=== PATIENT | female | born 1960 | race Caucasian/White ===

== ENCOUNTER 2024-09-12 19:42 | Emergency (ER) | payer BC, SELFPAY ==
[2024-09-12 19:49] VITALS: BP 121/81
[2024-09-12 20:30] LABS: ALT (SGPT) 29 U/L (0-35); AST (SGOT) 24 U/L (14-36); Albumin 4.3 g/dl (3.5-5.0); Alkaline Phosphatase 96 U/L (38-126); Blood Urea Nitrogen 17 mg/dl (7-17); Calcium 9.4 mg/dl (8.4-10.2); Carbon Dioxide 25 mmol/L (22-30); Chloride 106 mmol/L (98-107); Glucose 125 mg/dl (70-99); Sodium 142 mmol/L (135-145); Total Bilirubin 0.2 mg/dl (0.2-1.3); Total Protein 7.1 g/dl (6.3-8.2); eGFR > 60.00
[2024-09-12 20:39] LABS: Troponin I < 0.012 ng/ml
[2024-09-12 21:14] VITALS: BP 109/66
--- NOTE | 2024-09-12 21:40 | ED.GENMED ---
History of Present Illness
General
Chief Complaint: Heart Rate Problem
Source: patient
Exam Limitations: none
Time Seen by Provider: 09/12/24 21:39
Nursing documentation reviewed up to this point in time: agreed with
History of Present Illness
History of Present Illness:
64-year-old female with history of IBS, GERD, endometriosis, hypothyroid, cholecystectomy, hernia repair, 2 C-sections, hysterectomy presents for palpitations. She states for the past 3 weeks she has felt 'fluttering, palpitations that come and go
real quick,' yesterday they were more frequent and today they happen 'a lot.' She denies chest pain or shortness of breath but just tonight in her room she states she felt winded walking from the bathroom to the bed.
She states she did not want to come but her at bedside made her come as they are leaving for [place] in 3 days.
Asymptomatic at this time.
Past History
Past History
ED Past Medical History: Other (hypothyroid)
ED Past Surgical History: Cholecystectomy and Gynecological
Social History
Tobacco: Vaping (Former smoker)
Alcohol: Occasional
Living: with family
Employment: Not employed
Review of Systems
Review of Systems
Allergies reviewed?: Yes
All Other Systems: ROS reviewed and negative except as documented in HPI and ROS
Constitutional: Reports no symptoms
EENT: Reports no symptoms
Respiratory: Reports no symptoms
Cardiac: Reports palpitations; Denies chest pain or diaphoresis
ABD/GI: Denies abdominal pain, nausea, vomiting or diarrhea
: Denies dysuria, frequency or difficulty voiding
Musculoskeletal: Reports no symptoms
Skin: Reports no symptoms
Neurological: Reports no symptoms
Phy Exam
Physical Exam
Physical Exam:
GENERAL: No acute distress. A&Ox3.
CONSTITUTIONAL: Afebrile.
EYES: Clear, conjunctivae normal
ENMT: moist mucus membranes, Pharynx nl
RESPIRATORY: Regular respirations, nonlabored, lungs clear.
CARDIOVASCULAR: Regular rate and rhythm, no murmurs, no rubs.
GI: Soft, nontender, normal BS
MUSCULOSKELETAL: Moves with ease. Well perfused.
SKIN: Warm, dry, pink
PSYCH: Normal mood and affect. Well kept, interactive and appropriate
NEUROLOGIC: Awake, alert and oriented. No focal neurological deficits
Course
Orders/Labs/Results
Orders:
Orders
09/12/24 19:43
Electrocardiogram (*1) Urgent
Reason for Study: Atrial Fibrillation
EKG- Treatment ONCE
09/12/24 20:05
Comprehensive Metabolic Panel Urgent
Troponin I Urgent
09/12/24 21:53
CR Chest - 2 Views Urgent
Comment:
Reason For Exam: palpitations
09/12/24 22:25
Complete Blood Count/With Diff Urgent
Abnormal Lab Results
09/12/24 09/12/24
20:05 22:25
Absolute Monos (auto) 0.7 H 10^3/uL
(0.1-0.6)
Monocytes % 9.4 H %
(1.7-9.3)
Glucose 125 H mg/dl
(70-99)
09/12/24 22:25
09/12/24 20:05
Vital Signs
Initial and Last Documented VS:
Initial Vital Signs
Temp Pulse Resp BP Pulse Ox
98.1 F 90 18 121/81 97
09/12/24 19:49 09/12/24 19:49 09/12/24 19:49 09/12/24 19:49 09/12/24 19:49
Last Documented Vital Signs
Temp Pulse Resp BP Pulse Ox
98.1 F 78 27 90/56 93
09/12/24 19:49 09/12/24 22:30 09/12/24 22:30 09/12/24 22:00 09/12/24 22:30
MDM/Problems Addressed
Differential Diagnosis Includes:
PVC's, PAC's, afib
MDM/Problems Addressed:
64-year-old female with history of IBS, GERD, endometriosis, hypothyroid, cholecystectomy, hernia repair, 2 C-sections, hysterectomy presents for palpitations. She states for the past 3 weeks she has felt 'fluttering, palpitations that come and go
real quick,' yesterday they were more frequent and today they happen 'a lot.' She denies chest pain or shortness of breath but just tonight in her room she states she felt winded walking from the bathroom to the bed.
She states she did not want to come but her at bedside made her come as they are leaving for [place] in 3 days.
Asymptomatic at this time.
CBC pending
CMP normal
Troponin normal
EKG NSR
2224: Chest x-ray NAD
Patient stable for discharge. Refer to cardiology for follow-up
[place] are leaving for [place] in 2 days so will call and make cardiology appointment
*EKG
EKG Intrepretation Date: 09/12/24
Interpretation: normal
Heart Rate: 98
Rate: normal
Rhythm: sinus
[place]: normal axis
Interval: normal interval
QRS Pattern: normal QRS
Ischemia: no ischemia
*Critical Care Note
Total Time (30-74mins, 75-104mins- exclusive of procedures): Not Applicable
ED Attending Note
-
Portions of this chart may have been created with voice recognition software.� Occasional wrong word or��sound alike� substitutions may have occurred due to the inherent limitations of voice recognition software.
Discharge Plan
Departure
Patient Disposition: Home (Routine Discharge)
Date of Disposition: 09/12/24
Time of Disposition: 22:26
Patient with high blood pressure during this ER visit?: No
Condition: Good
Discharge Problem:
Palpitations
Instructions: Palpitations (DC)
Prescriptions:
No Action
omeprazole 40 MG capsule,delayed release(DR/EC)
40 mg PO DAILY
levothyroxine [Synthroid] 100 MCG tablet
100 mcg PO DAILY
ibuprofen 600 MG tablet
600 mg PO PRN PRN (Reason: pain)
escitalopram oxalate 10 MG tablet
10 mg PO DAILY
Referrals:
Bobbi Ojeda MD [Active] - Next open appointment
UNKNOWN - PT DOES,NOT KNOW [Unknown Provider] -
Activity Restrictions/Additional Instructions:
As we discussed, nothing worrisome in your workup here today, specifically no sign of a heart attack or abnormal heart rhythm.
Call the cardiology office to make next available appointment for more complete cardiac workup.
Seek medical care immediately if you develop palpitations associated with shortness of breath, chest pain, feeling weak or lightheaded or feeling worse in any way.
Interventions
Interventions:
*Risk Screen - Suicide Last Done: 09/12/24 19:50
*General Assessment Last Done: 09/12/24 19:50
*Neglect/Abuse Screening Last Done: 09/12/24 19:50
ED- Fall Risk Assessment Last Done: 09/12/24 22:46
*ED COVID-19 Vaccine History Last Done: 09/12/24 19:50
*Nursing Disposition Last Done: 09/12/24 22:46
ED- Cardiac Assessment Last Done: 09/12/24 21:19
ED- Pulmonary Assessment Last Done: 09/12/24 21:19
Discharge Date and Time
Discharge Date/Time: 09/12/24 22:47
Print Language: EQUATORIAL GUINEAN
[2024-09-12 22:00] VITALS: BP 90/56
[2024-09-12 22:30] LABS: % Basophils 0.5 % (0-2); % Eosinophils 2.2 % (0-6); % Immature Granulocytes 0.3 % (0-0.5); % Lymphocytes 38.3 % (20.5-51.1); % Monocytes 9.4 % (1.7-9.3); % Neutrophils 49.3 % (42.2-75.2); Absolute Eosinophils 0.2 10^3/uL (0-0.7); Absolute Lymphocytes 2.8 10^3/uL (1.2-3.4); Absolute Monocytes 0.7 10^3/uL (0.1-0.6); Absolute Neutrophils 3.7 10^3/uL (1.4-6.5); Hemoglobin 13.2 g/dL (12.0-16.0); Mean Corpuscular Hgb 28.4 pg (27.0-31.0); Mean Corpuscular Volume 86.2 fL (81.0-99.0); Mean Platelet Volume 9.1 fL (7.4-10.4); Nucleated Red Blood Cells % 0 %; Platelet Count 262 10^3/uL (130-400); Red Blood Cell Count 4.64 10^6/uL (4.20-5.40); Red Cell Dist. Width 13.5 % (11.5-14.5); White Blood Cell Count 7.4 10^3/uL (4.8-10.8)
== END 2024-09-12 22:47 | disposition home or self-care (01) ==
LOC: EMR 19:42
PROVIDERS: EMERGENCY PHYSICIAN Emergency Medicine; FAMILY PHYSICIAN Family Medicine
DX: R00.2 Palpitations (principal); K58.9 Irritable bowel syndrome, unspecified; K21.9 Gastro-esophageal reflux disease without esophagitis; N80.9 Endometriosis, unspecified; E03.9 Hypothyroidism, unspecified; I48.91 Unspecified atrial fibrillation; Z87.891 Personal history of nicotine dependence; Z90.49 Acquired absence of other specified parts of digestive tract
CPT/HCPCS: 99284; 71046; 80053; 84484; 85025; 93005

== ENCOUNTER → 2024-10-26 14:51 | Outpatient (REF) | payer OTHER, SELFPAY | LOC: HWRCS 14:51 | PROVIDERS: ATTENDING PHYSICIAN Internal Medicine Cardiovascular Disease; FAMILY PHYSICIAN Family Medicine | DX: R00.2 Palpitations (principal); Z82.79 Family history of other congenital malformations, deformations and chromosomal abnormalities; R94.31 Abnormal electrocardiogram [ECG] [EKG] | CPT/HCPCS: 93306 ==

== ENCOUNTER 2025-09-11 18:43 | Emergency (ER) | payer OTHER, SELFPAY ==
[2025-09-11 18:52] VITALS: BP 166/79
--- NOTE | 2025-09-11 19:37 | ED.MUSCINJ ---
HPI-Injury
General
Chief Complaint: Musculo-Skeletal Complaint
Source: patient
Exam Limitations: none
Time Seen by Provider: 09/11/25 19:31
Nursing documentation reviewed up to this point in time: agreed with
History of Present Illness-Injury
Is this injury a work related problem?: No
Is pt an associate of [facility]/[place] [facility]?: No
Initial Injury comments:
Patient to the emergency department for evaluation of bilateral dorsal feet. She states that her grandson was sitting on a stadium bench and bench tipped over. Bench landed on top of both of her feet. Incident occurred just prior to arrival. She
complains of pain to bilateral feet
Past History
Past History
ED Past Medical History: Other (hypothyroid)
ED Past Surgical History: Cholecystectomy and Gynecological
Social History
Tobacco: Vaping (Former smoker)
Alcohol: Occasional
Living: with family
Employment: Not employed
Review of Systems
Review of Systems
Allergies reviewed?: Yes
All Other Systems: ROS reviewed and negative except as documented in HPI and ROS
Constitutional: Reports no symptoms
Musculoskeletal: Reports joint pain (Bilateral foot pain)
Skin: Reports no symptoms
Neurological: Reports no symptoms
Psychiatric: Reports no symptoms
Musculoskeletal Injury Exam
Musculoskeletal Injury Exam
Right Dorsal Foot:
Pain with Movement?: Moderate
Tender to palpation?: Moderate
Soft tissue swelling?: Mild
External deformity and angulation?: None
Joint effusion?: None
Contusion?: Moderate
Hematoma-local bleeding into tissue?: None
Strain- Sprain- Tear (Connective tissue injury)?: None
Crepitus with movement?: No
Joint instability?: No
Malalignment/deformity?: No
Range of motion: Limited
Distal skin color and temperature: normal-warm & good color
Capillary Refill: normal
Normal distal neurovascular exam?: Yes
Peripheral Pulses: posterior tibial (left): 3+, posterior tibial (right): 3+, dorsalis pedis (left): 3+ and dorsalis pedis (right): 3+
Left Dorsal Foot:
Pain with Movement?: Moderate
Tender to palpation?: Moderate
Soft tissue swelling?: None
External deformity and angulation?: None
Joint effusion?: None
Contusion?: Moderate
Hematoma-local bleeding into tissue?: None
Strain- Sprain- Tear (Connective tissue injury)?: None
Crepitus with movement?: No
Joint instability?: No
Malalignment/deformity?: No
Range of motion: Limited
Distal skin color and temperature: normal-warm & good color
Capillary Refill: normal
Normal distal neurovascular exam?: Yes
Phy Exam
General Physical Exam
General Presentation: well appearing and mild distress
General age: appears stated age
General Skin: warm and dry
General Habitus: normal
General Mental: alert
Musculoskeletal Exam
Musculoskeletal Exam: neuro vasc intact and other (Pain to bilateral dorsal feet. There is no bruising noted. Mild swelling noted bilaterally.)
Skin Exam
Skin Exam: normal color, warm/dry and no rash
Psychiatric Exam
Psychiatric Exam: normal mood/affect
Injury Course
Orders/Labs/Results
Orders:
Orders
09/11/25 18:54
CR Foot - Left Min 3 Views Urgent
Comment:
Reason For Exam: bench fell on foot
Foot, Right 3 View [CR Foot - Right Min 3 Views] Urgent
Comment:
Reason For Exam: bench fell on foot
09/11/25 19:35
Mitch Wrap Left-Treatment ONCE
Mitch Wrap Right-Treatment ONCE
Ibuprofen [Motrin] 600 mg PO NOW STA
*Radiology
Radiology exam reviewed: radiology read reviewed
*Pulse Oximetry
SaO2: 100
Oxygen Mode of Delivery: Room air
Patient hypoxic: no
*Critical Care Note
Total Time (30-74mins, 75-104mins- exclusive of procedures): Not Applicable
Update Note
Update Note:
Patient to the emergency department for evaluation of bilateral feet. She states that a stadium bench fell over onto the top of her feet. Incident occurred just prior to arrival. On exam she has mild swelling to dorsum of bilateral feet.
Bilateral lower extremities are neurovascularly intact. No bruising or erythema noted. X-rays reviewed, no evidence of fracture to either foot. Will apply Mitch wrap's to both feet. She will remove them at bedtime, reapply in AM. She was
instructed on elevation and applying ice to her feet. She will follow-up with her family doctor. She was given the number for podiatry and will follow-up if her symptoms do not begin to improve over the course of the next week.
ED Attending Note
-
Portions of this chart may have been created with voice recognition software.� Occasional wrong word or��sound alike� substitutions may have occurred due to the inherent limitations of voice recognition software.
Discharge Plan
Departure
Patient Disposition: Home (Routine Discharge)
Date of Disposition: 09/11/25
Time of Disposition: 19:35
Patient with high blood pressure during this ER visit?: No
Condition: Good
Covid-19: Not Applicable
Discharge Problem:
Contusion of foot
Instructions: Contusion (DC), Ibuprofen, RICE Therapy
Prescriptions:
No Action
omeprazole 40 MG capsule,delayed release(DR/EC)
40 mg PO DAILY
levothyroxine [Synthroid] 100 MCG tablet
100 mcg PO DAILY
ibuprofen 600 MG tablet
600 mg PO PRN PRN (Reason: pain)
escitalopram oxalate 10 MG tablet
10 mg PO DAILY
Referrals:
James Sheets DPM [Active, Podiatry]
Referral Note: Follow-up if your symptoms do not begin to improve over the next week
Activity Restrictions/Additional Instructions:
Follow-up with your family doctor. elevate both feet. Apply ice 15 to 20 minutes at a time 4-5 times daily. Apply Mitch wrap's to both feet in the a.m. Remove at bedtime.
Interventions
Interventions:
*Risk Screen - Suicide Last Done: 09/11/25 18:54
*General Assessment Last Done: 09/11/25 18:54
*Neglect/Abuse Screening Last Done: 09/11/25 18:54
*ED COVID-19 Vaccine History Last Done: 09/11/25 18:54
*ED Influenza Vaccine History Last Done: 09/11/25 18:54
[facility] Fall Risk Assessment Tool Last Done: 09/11/25 19:10
Discharge Date and Time
Print Language: [place]
[2025-09-11] MEDS: MOTRIN 600 MG PO (19:46)
== END 2025-09-11 20:04 | disposition home or self-care (01) ==
LOC: EMR 18:43
PROVIDERS: EMERGENCY PHYSICIAN Emergency Medicine; FAMILY PHYSICIAN Family Medicine
DX: S90.32XA Contusion of left foot, initial encounter (principal); W20.8XXA Other cause of strike by thrown, projected or falling object, initial encounter; E03.9 Hypothyroidism, unspecified; M19.071 Primary osteoarthritis, right ankle and foot; M19.072 Primary osteoarthritis, left ankle and foot; Z87.891 Personal history of nicotine dependence; Z90.49 Acquired absence of other specified parts of digestive tract
CPT/HCPCS: 99283; 73630